=== PATIENT | female | born 2000 | race Two or more races ===

== ENCOUNTER → 2025-02-05 | Outpatient (CLI) | payer MEDICAID, SELFPAY ==
--- NOTE | 2025-02-05 07:15 | XR_ITS ---
Examination: Abdomen sonogram, complete Date and time of exam: February 05, 2025 0731 hours INDICATIONS: Diagnosis fatty liver. Technique: Multiple real-time grayscale transabdominal sonographic images of the abdomen have been obtained. Findings: Normal gallbladder Normal common bile duct 0.2 cm Pancreatic head 2.2 cm Aorta not enlarged Liver 15.3 cm fatty infiltration Normal hepatopedal portal venous flow Patent IVC Right kidney 10.2 cm cortex 2.1 cm Left kidney 9.2 cm cortex 1.7 cm Mild bilateral renal parenchymal scar formation Spleen 7.6 cm IMPRESSION: Normal gallbladder Fatty infiltration throughout the liver
== END | disposition home or self-care (01) ==
LOC: CDIM 07:06
PROVIDERS: PCP Registered Nurse Community Health; Referring Provider Registered Nurse Community Health; Visit Provider Registered Nurse Community Health
DX: K76.0 Fatty (change of) liver, not elsewhere classified (principal); E78.2 Mixed hyperlipidemia; R74.8 Abnormal levels of other serum enzymes
CPT/HCPCS: 76700